=== PATIENT | male | born 1960 | race Hispanic/Latino ===

== ENCOUNTER 2025-01-16 14:17 | Emergency (ER) | payer BC ==
[~2025-01-16] VITALS: Ht 185.4 cm; Wt 95.3 kg
[~2025-01-16 14:17] MED LIST: CEFDINIR300 MG PO; FLOMAX0.4 MG PO; HYDROCODON-ACE1 EA12 PO; ONDANSETRON ODT4 MG SL
[2025-01-16 14:50] VITALS: PULSE 60; RESP 16; TEMP 98.8
[2025-01-16] MEDS ORDERED: FLOMAX0.4 MG PO (15:46)
[2025-01-16 15:56] VITALS: BP 126/70; PULSE 54; RESP 16; O2SAT 100
== END 2025-01-16 15:50 | disposition home or self-care (01) ==
LOC: ER 15:16
DX: R10.9 Unspecified abdominal pain (principal); N13.2 Hydronephrosis with renal and ureteral calculous obstruction
CPT/HCPCS: 99283